=== PATIENT | female | born 1940 | race Caucasian/White ===

== ENCOUNTER → 2020-07-10 | Outpatient (CLI) | payer MEDICARE, OTHER ==
[~2020-07-10] MED LIST: ALBUTEROL2.5 MG/3 M INH; ASPIRIN325 MG PO; FENTANYL1 EAC4 TD; KLONOPIN TAB 00.5 MG PO; LASIX 40 MG TAB40 MG PO; LIPITOR TAB 2020 MG PO; LORTAB 5-325 M1 EACH PO; MEDROL DOSEPAK 24 MG PO; METFORMIN HCL500 MG PO; NEURONTIN 300300 MG PO; NITROSTAT 0.40.4 MG SL; OMNICEF 300 MG300 MG PO; PANTOPRAZOLE SO40 MG PO; POTASSIUM CHLO10 MEQ PO; SERTRALINE HCL100 MG PO; SYMBICORT 160-1 INHA INH; SYNTHROID 100100 MCG PO; TENORMIN 25 MG25 MG PO; TESSALON PERLE100 MG PO
== END ==
LOC: KOH-I 12:38
DX: M25.532 Pain in left wrist (principal)
CPT/HCPCS: 73100

== ENCOUNTER 2021-05-10 15:48 | Inpatient (IN) | payer MEDICARE, OTHER ==
[~2021-05-10] VITALS: Ht 157.5 cm; Wt 108.5 kg
[~2021-05-10 15:48] MED LIST changes: -ALBUTEROL2.5 MG/3 M INH; -ASPIRIN325 MG PO; -SYNTHROID 100100 MCG PO
[2021-05-10 17:25] LABS: HEMOGLOBIN 12.3 gm/dl (12.3-15.3); RED BLOOD COUNT 4.61 M/UL (4.00-5.10); WHITE BLOOD COUNT 5.7 K/UL (4.5-11.0)
[2021-05-11 03:56] LABS: HEMOGLOBIN 11.6 gm/dl (12.3-15.3); RED BLOOD COUNT 4.35 M/UL (4.00-5.10)
[2021-05-11 04:05] LABS: WHITE BLOOD COUNT 3.5 K/UL (4.5-11.0)
[2021-05-11] MEDS ORDERED: NORVASC5 MG PO (19:01)
[2021-05-11] MEDS ORDERED: VALISONE 0.1% C15 GM TOP (19:04)
[2021-05-11] MEDS ORDERED: CELEBREX200 MG PO (19:06)
[2021-05-11] MEDS ORDERED: ZETIA10 MG PO (19:08)
[2021-05-11] MEDS ORDERED: NORFLEX 100 MG100 MG PO (20:07)
[2021-05-11] MEDS ORDERED: SYNTHROID112 MCG PO (20:57)
[2021-05-11] MEDS ORDERED: PROAIR HFA8.5 GM INH (21:00)
[2021-05-11] MEDS ORDERED: ASPIRIN EC81 MG PO (21:01)
[2021-05-11] MEDS ORDERED: KLONOPIN1 MG PO (21:09)
[2021-05-12 02:59] LABS: HEMOGLOBIN 11.2 gm/dl (12.3-15.3); RED BLOOD COUNT 4.29 M/UL (4.00-5.10)
[2021-05-13 05:03] LABS: HEMOGLOBIN 10.6 gm/dl (12.3-15.3); RED BLOOD COUNT 4.06 M/UL (4.00-5.10); WHITE BLOOD COUNT 7.4 K/UL (4.5-11.0)
[2021-05-14 04:34] LABS: HEMOGLOBIN 10.8 gm/dl (12.3-15.3); RED BLOOD COUNT 4.17 M/UL (4.00-5.10); WHITE BLOOD COUNT 5.7 K/UL (4.5-11.0)
[2021-05-15 02:44] LABS: HEMOGLOBIN 10.3 gm/dl (12.3-15.3); RED BLOOD COUNT 4.03 M/UL (4.00-5.10); WHITE BLOOD COUNT 4.7 K/UL (4.5-11.0)
[2021-05-17 03:06] LABS: HEMOGLOBIN 10.7 gm/dl (12.3-15.3); RED BLOOD COUNT 4.13 M/UL (4.00-5.10)
[2021-05-17] MEDS ORDERED: ZITHROMAX250 MG PO (09:27)
[2021-05-17] MEDS ORDERED: MEDROL DOSEPAK 24 MG PO (09:27)
[2021-05-17] MEDS ORDERED: NORVASC5 MG PO (09:27)
== END 2021-05-17 13:36 | disposition home or self-care (01) | DRG 682 ==
LOC: ER1 15:48 → CDU 19:02 → PROG CARE 19:02
PROVIDERS: Emergency Medicine; Family Medicine; Internal Medicine Nephrology; ADMIT Internal Medicine
PROC: B24BZZZ Ultrasonography of Heart with Aorta (ICD-10-PCS; principal; 2021-05-11)
PROC: 5A0945A Assistance with Respiratory Ventilation, 24-96 Consecutive Hours, High Flow/Velocity Cannula (ICD-10-PCS; 2021-05-11)
PROC: 5A0935A Assistance with Respiratory Ventilation, Less than 24 Consecutive Hours, High Flow/Velocity Cannula (ICD-10-PCS; 2021-05-11)
PROC: 5A0935A Assistance with Respiratory Ventilation, Less than 24 Consecutive Hours, High Flow/Velocity Cannula (ICD-10-PCS; 2021-05-13)
PROC: 5A09357 Assistance with Respiratory Ventilation, Less than 24 Consecutive Hours, Continuous Positive Airway Pressure (ICD-10-PCS; 2021-05-14)
DX: N17.9 Acute kidney failure, unspecified (principal); J96.21 Acute and chronic respiratory failure with hypoxia; J44.1 Chronic obstructive pulmonary disease with (acute) exacerbation; E66.2 Morbid (severe) obesity with alveolar hypoventilation; E87.2 Acidosis; I13.0 Hypertensive heart and chronic kidney disease with heart failure and stage 1 through stage 4 chronic kidney disease, or unspecified chronic kidney disease; I50.22 Chronic systolic (congestive) heart failure; E87.0 Hyperosmolality and hypernatremia; Z68.42 Body mass index [BMI] 45.0-49.9, adult; F32.A Depression, unspecified; K21.9 Gastro-esophageal reflux disease without esophagitis; Z20.822 Contact with and (suspected) exposure to COVID-19; E78.5 Hyperlipidemia, unspecified; N18.30 Chronic kidney disease, stage 3 unspecified; E03.9 Hypothyroidism, unspecified; G47.33 Obstructive sleep apnea (adult) (pediatric); E11.22 Type 2 diabetes mellitus with diabetic chronic kidney disease; E11.65 Type 2 diabetes mellitus with hyperglycemia; Z96.649 Presence of unspecified artificial hip joint; G89.29 Other chronic pain; T38.0X5A Adverse effect of glucocorticoids and synthetic analogues, initial encounter; M19.91 Primary osteoarthritis, unspecified site; R00.1 Bradycardia, unspecified; Z87.891 Personal history of nicotine dependence; Z99.81 Dependence on supplemental oxygen; Z88.8 Allergy status to other drugs, medicaments and biological substances; Z91.040 Latex allergy status; Z82.49 Family history of ischemic heart disease and other diseases of the circulatory system; Z79.82 Long term (current) use of aspirin; Z79.899 Other long term (current) drug therapy
CPT/HCPCS: ECHO; 0240U; 36415; 36600; 71045; 80048; 80053; 81001; 82550; 82553; 82570; 82803; 82962; 83605; 83880; 84133; 84156; 84300; 84484; 85025; 85027; 87040; 89050; 93005; 93306; 94640; 94660; 94664; 94760; 96374; 96375; 97161; 99285; J0456; J0696; J1650; J1940; J2920; J2930; J7030; P9047

== ENCOUNTER → 2021-10-29 | Outpatient (CLI) | payer MEDICARE, OTHER ==
[~2021-10-29] MED LIST changes: +ASPIRIN EC81 MG PO; +CELEBREX200 MG PO; +KLONOPIN1 MG PO; +NORFLEX 100 MG100 MG PO; +NORVASC5 MG PO; +PROAIR HFA8.5 GM INH; +SYNTHROID112 MCG PO; +VALISONE 0.1% C15 GM TOP; +ZETIA10 MG PO; +ZITHROMAX250 MG PO
== END ==
LOC: MAMO 11:30
DX: Z12.31 Encounter for screening mammogram for malignant neoplasm of breast (principal)
CPT/HCPCS: 77063; 77067